=== PATIENT | male | born 1935 | race Hispanic/Latino ===

== ENCOUNTER 2017-12-17 13:13 | Observation (INO) | payer OTHER ==
[~2017-12-17] VITALS: Ht 172.7 cm; Wt 81.8 kg
[~2017-12-17 13:13] MED LIST: ALLOPURINOL100 MG PO; AMLODIPINE BESY10 MG PO; ASPIR 8181 M1 PO; ASPIRIN81 M1 PO; ATORVASTATIN CA20 MG PO; ATORVASTATIN CA40 MG PO; AZITHROMYCIN500 M1 PO; BICALUTAMIDE50 MG PO; CARVEDILOL12.5 MG PO; CASODEX50 MG PO; CEFTIN500 MG PO; COREG12.5 M1 PO; COREG3.125 M1 PO; COZAAR100 MG PO; DOXYCYCLINE HY100 MG PO; ERGOCALCIF50000 UNIT PO; FAMOTIDINE40 MG PO; FLOMAX0.4 MG PO; GABAPENTIN300 MG PO; GLUCOPHAGE1000 MG PO; GLUCOPHAGE500 MG PO; HYGROTON25 MG PO; HYZAAR 100-12.1 EACH PO; HYZAAR 100-21 TABLET PO; IMDUR120 MG PO; IMDUR60 MG PO; ISOSORBIDE MON120 M1 PO; K-DUR20 MEQ PO; KLOR-CON 1010 ME1 PO; LIPITOR80 MG PO; LOSARTAN-HCTZ1 EAC1 PO; LOZOL2.5 MG PO; METFORMIN HCL500 MG PO; METFORMIN HCL850 MG PO; METOPROLOL TART25 MG PO; MICRO-K10 ME2 PO; MIRTAZAPINE30 MG PO; NEURONTIN300 MG PO; NEURONTIN600 MG PO; NITROQUICK0.4 MG PO; NITROSTAT0.3 MG SL; NITROSTAT0.4 MG SL; NORVASC10 MG PO; NORVASC5 MG PO; OMEPRAZOLE20 M2 PO; OMEPRAZOLE20 MG PO; PANTOPRAZOLE SO40 MG PO; PEPCID40 MG PO; PLAVIX75 MG PO; POTASSIUM GLUCO2 MEQ PO; POTASSIUM GLUCO99 M1 PO; PRILOSEC20 MG PO; PROAIR HFA8.5 GM IH; PROTONIX40 MG PO; PriLOSEC PO; REMERON30 M2 PO; TAMSULOSIN HCL0.4 MG PO; TERBINAFINE HC250 MG PO; VENTOLIN HFA18 GM IH; ZOCOR40 MG PO; ZYLOPRIM100 MG PO
[2017-12-17 13:54] LABS: HEMATOCRIT 42.4 % (38.0-50.0); MCH 29.2 PG (29.0-34.0); MCV 88.3 FL (86-99); PLATELET COUNT 222 K/uL (156-360); RBC DIS.WIDTH-CV 13.2 % (11.8-14.6); RBC DIS.WIDTH-SD 42.6 % (39-53); WHITE BLOOD COUNT 9.2 K/uL (4.1-10.2)
[2017-12-17 14:09] LABS: CHLORIDE 104 mEq/L (99-109); POTASSIUM 4.8 mEq/L (3.7-5.4); SODIUM 138 mEq/L (136-147)
[2017-12-17 14:10] LABS: GLUCOSE 159 mg/dL (70-99)
[2017-12-17 14:14] LABS: CREATININE 0.9 mg/dL (0.6-1.3); GFR ESTIMATE (CALCULATED) > 59 mL/min/ (58.99-99999)
[2017-12-17 14:15] LABS: UREA NITROGEN (BUN) 18 mg/dL (9-23)
[2017-12-17 14:18] LABS: TROP-I INTERPRETATION NEGATIVE; TROPONIN-I < 0.01 ng/mL (0.0-0.30)
[2017-12-17] MEDS ORDERED: ASPIR-TRIN325 M1 PO (15:15)
[2017-12-17] MEDS ORDERED: COZAAR50 MG PO (15:16)
[2017-12-17] MEDS ORDERED: HYDROCHLOROTHIA25 MG PO (15:17)
[2017-12-17] MEDS ORDERED: LASIX20 MG PO (15:18)
[2017-12-17] MEDS ORDERED: ATIVAN0.5 MG PO (15:19)
[2017-12-17] MEDS ORDERED: RESTORIL15 MG PO (15:19)
[2017-12-17] MEDS ORDERED: ZOLOFT50 MG PO (15:19)
[2017-12-17 16:56] LABS: HDL CHOLESTEROL 38 MG/DL (Desirable>=40); LDL CHOLESTEROL 103 mg/dL (Desirable<100); NON-HDL CHOLESTEROL 181 mg/dL (Desirable<160); TOTAL CHOLESTEROL 219 mg/dL (Desirable<200); TRIGLYCERIDES 388 MG/DL (Normal: <150)
[2017-12-17 18:32] VITALS: BP 177/88
[2017-12-17 19:17] LABS: TROP-I INTERPRETATION NEGATIVE; TROPONIN-I < 0.01 ng/mL (0.0-0.30)
[2017-12-17 20:01] VITALS: BP 155/75
[2017-12-17 23:26] VITALS: BP 145/77
[2017-12-18 01:04] LABS: TROP-I INTERPRETATION NEGATIVE; TROPONIN-I 0.02 ng/mL (0.0-0.30)
[2017-12-18 03:24] VITALS: BP 97/59
[2017-12-18 05:24] LABS: HEMATOCRIT 40.6 % (38.0-50.0); HEMOGLOBIN 13.1 G/DL (12.5-16.6); MCH 28.4 PG (29.0-34.0); MCHC 32.3 G/DL (30.0-36.0); MCV 87.9 FL (86-99); PLATELET COUNT 200 K/uL (156-360); RBC DIS.WIDTH-CV 13.1 % (11.8-14.6); RBC DIS.WIDTH-SD 42.5 % (39-53); RED BLOOD COUNT 4.62 M/uL (4.00-5.50); WHITE BLOOD COUNT 8.6 K/uL (4.1-10.2)
[2017-12-18 05:58] LABS: CHLORIDE 104 MEQ/L (99-109); GFR ESTIMATE (CALCULATED) > 59 mL/min/ (58.99-99999); GLUCOSE 122 mg/dL (70-99); POTASSIUM 4.8 MEQ/L (3.7-5.4); SODIUM 138 MEQ/L (136-147); UREA NITROGEN (BUN) 20 mg/dL (9-23)
[2017-12-18 07:08] VITALS: BP 147/78
[2017-12-18 11:09] VITALS: BP 109/62
[2017-12-19 10:26] LABS: HEMOGLOBIN A1c (GLYCOHEMOGLOB) 6.7 % (Below 5.7)
== END 2017-12-18 15:56 | disposition home or self-care (01) ==
LOC: EME 13:13 → EDOF 14:47 → ENRESERV 14:54 → 4SOUTH 18:12 → ENPENDDIS 12-18 15:02 → 4SOUTH 12-18 15:56
PROVIDERS: Hospitalist
DX: R07.89 Other chest pain (principal); I25.10 Atherosclerotic heart disease of native coronary artery without angina pectoris; Z95.5 Presence of coronary angioplasty implant and graft; E11.9 Type 2 diabetes mellitus without complications; I11.0 Hypertensive heart disease with heart failure; I50.9 Heart failure, unspecified; E78.5 Hyperlipidemia, unspecified; R94.31 Abnormal electrocardiogram [ECG] [EKG]; Z91.14 Patient's other noncompliance with medication regimen; Z91.19 Patient's noncompliance with other medical treatment and regimen; N40.0 Benign prostatic hyperplasia without lower urinary tract symptoms; Z82.49 Family history of ischemic heart disease and other diseases of the circulatory system; Z79.4 Long term (current) use of insulin; F32.9 Major depressive disorder, single episode, unspecified; Z79.82 Long term (current) use of aspirin; Z79.02 Long term (current) use of antithrombotics/antiplatelets; Z88.5 Allergy status to narcotic agent
CPT/HCPCS: 71046; 80048; 80061; 82948; 83036; 84484; 85027; 93005; G0378; J1650; S0028